=== PATIENT | male | born 1965 | race Caucasian/White ===

== ENCOUNTER 2016-11-02 15:42 | Inpatient (IN) | payer OTHER ==
--- NOTE | ~2016-11-02 | CN ---
Consultation Report [facility] [address] [place]. [address] NAME: CHLOE SEWELL : 67 STATUS : ADM IN PAT#: [id number] AGE: 51 ADM/REG DATE : 11/02/16 MR#: [id number] REPORT SERV DATE: 11/03/16 DICTATED BY: ERA LLAMAS DATE: 11/03/16 REPORT STATUS : Draft TRANSCRIBED BY: MODL DATE: 11/03/16 INFECTIOUS DISEASE CONSULT DATE OF CONSULTATION: 11/03/2016 REASON FOR CONSULTATION: Possible endocarditis. HISTORY OF PRESENT ILLNESS: This is a 51-year-old man, well known to me from his long hospitalization last spring and summer from 12/17/2015 through 02/13/2016 for MRSA bacteremia in the setting of injection drug use with osteomyelitis of his right clavicle and a L3-L4 lumbar epidural abscess. During that admission, he underwent L3-L4 laminectomy by Dr. Colvin and irrigation and debridement of the lumbar spine. On 01/04/2016, he underwent resection of the right sternoclavicular joint with partial resection of the anterior table of the manubrium and a portion of the first rib cartilage and irrigation and debridement of surrounding soft tissue infection by Dr. Paul. The patient completed a long course of vancomycin. His course was also complicated by Lizz tropicalis bacteremia. Unfortunately, the patient has continued to use injection drugs. He says he has had chronic mid and lower back pain since that admission which has not been worsening. The patient also states he had a drainage from a very focal area of his upper sternum, but eventually, found a retained suture there and removed that himself, and over the past two months, he has had no further drainage and he denies any pain in his sternum. The patient presented to the emergency room last night because of two weeks of worsening shortness of breath along with some low-grade fevers and a bit of a cough. He also notes some pain in the right lateral chest area. The patient was found to have a temperature of 100.2 and was mildly tachypneic and tachycardic. The patient underwent negative chest x-ray followed by CT angiography of the chest. I have reviewed this study in detail with Radiology. They did show some probable reactive adenopathy as outlined in the dictation. The patient had patchy infiltrates, most prominent in the right lower lobe, with a few smaller nodular infiltrates in the left upper lobe. There were changes of the manubrium, sternum, right clavicle, and right first rib suggestive of possible chronic osteomyelitis versus just chronic postoperative post infectious changes. Also, seen was splenomegaly. The patient was started on antibiotics of vancomycin and gentamicin after blood cultures. Admission blood cultures remain negative at 24 hours of incubation. PAST MEDICAL HISTORY: As outlined above and in the previous dictation. He does have chronic hepatitis C. He also has history of cholelithiasis, diverticulosis, and BPH. ALLERGIES: CEPHALOSPORIN CAUSES HIVES. HE ALSO CANNOT TAKE MORPHINE. OUTPATIENT MEDICATIONS: Listed as only albuterol. SOCIAL HISTORY: As above. In addition, he is nonsmoker, nondrinker. FAMILY HISTORY: The patient is adopted. Consultation Report [address] [place]. [address] NAME: CHLOE SEWELL : 67 STATUS : ADM IN [facility]#: [id number] AGE: 51 ADM/REG DATE : 11/02/16 MR#: [id number] REPORT SERV DATE: 11/03/16 DICTATED BY: ERA LLAMAS DATE: 11/03/16 REPORT STATUS : Draft TRANSCRIBED BY: LUCHO DATE: 11/03/16 REVIEW OF SYSTEMS: Otherwise negative. PHYSICAL EXAMINATION: VITAL SIGNS: The patient weighs 85 kg, maximum temperature since admission 100.2, blood pressure 165/89, pulse 104, respiratory rate at present is 16. GENERAL: He is alert. He looks ill, but not toxic. HEAD AND NECK: Extraocular movements intact. Conjunctivae without petechiae. The oral cavity is clear. NECK: Supple. LUNGS: Clear to auscultation. CARDIAC: Regular rate and rhythm. Normal S1, S2 without murmur, gallop, or rub. CHEST: Shows chronic postoperative changes of the upper sternal area without signs of inflammation and without tenderness to palpation. BACK: Shows well-healed surgical wound. No focal findings. ABDOMEN: Soft, nontender. EXTREMITIES: Show some needle tracks. No evidence of thrombophlebitis or abscess. SKIN: Without rash. LABORATORY STUDIES: White blood cell count on admission was 9.1, today it is 6.8, hemoglobin is 12.6, platelets 145. Creatinine 0.61. Procalcitonin 0.09. Albumin 3.2. Liver function tests normal. Urinalysis negative. Urine legionella and pneumococcal antigens negative. Rapid influenza screen negative. IMAGING STUDIES: As noted. IMPRESSION: Given the patient's history of ongoing injection drug use along with these bilateral pulmonary infiltrates and fever, we obviously have to be concerned about right- sided endocarditis. I believe the CT changes involving the sternum and manubrium and clavicle may very well all be a chronic from his previous infection and surgery and these do not necessarily represent active osteomyelitis although of course that is of some concern. He did have this history of some drainage for some time, but once, he himself removed an old suture, he has had no further drainage for the past couple of months. The patient also complains of chronic mid and lower back pain. However, this pain has not been worsening. PLAN: 1. Continue vancomycin. 2. Add gram-negative coverage with oral Levaquin pending blood cultures. The patient's IV access is quite tenuous. If needed, we could switch the vancomycin and oral Zyvox. He has a history of ceftriaxone allergy. 3. Await blood culture results. 4. If the blood cultures are positive, we may need a followup MRI of the spine. Consultation Report [address] [place]. [address] NAME: CHLOE SEWELL : 67 STATUS : ADM IN [facility]#: [id number] AGE: 51 ADM/REG DATE : 11/02/16 MR#: [id number] REPORT SERV DATE: 11/03/16 DICTATED BY: ERA LLAMAS DATE: 11/03/16 REPORT STATUS : Draft TRANSCRIBED BY: LUCHO DATE: 11/03/16 YOBANY/LUCHO Era Llamas M.D. / [id number] CC: Jesus Sevilla DO
--- NOTE | ~2016-11-02 | DS ---
Discharge Summary [facility] [address] [place]. [address] NAME: CHLOE SEWELL : 67 STATUS : DIS IN PAT#: [id number] AGE: 51 ADM/REG DATE : 11/02/16 MR#: [id number] REPORT SERV DATE: 11/09/16 DICTATED BY: SJ BARKER DATE: 11/08/16 REPORT STATUS : Draft TRANSCRIBED BY: MODL DATE: 11/08/16 ADMISSION DATE: 11/02/2016 DISCHARGE DATE: 11/08/2016 DISCHARGE DIAGNOSES: 1. Likely a community-acquired pneumonia with sepsis. 2. Acute hypoxic respiratory failure, present on admission, resolved. 3. Hypertension. 4. Ongoing IV drug use. 5. History of infective endocarditis. 6. History of methicillin-resistant Staphylococcus aureus, osteomyelitis, and diskitis. 7. History of fungemia and bacteremia as related to above. 8. Hepatitis C. CONSULTS: Dr. Llamas of Infectious Disease. PROCEDURES AND IMAGING: Echocardiogram performed on 11/04/2016 was negative for endocarditis. The patient had normal LV size and systolic function as well as diastolic function. The patient also had normal right ventricular size and systolic function. The patient only had [id number] tricuspid regurgitation, mild calcified aortic valve, and mild mitral calcification. CT of the chest performed on 11/02/2016 revealed bilateral infiltrates that was suspicious for possible septic emboli. HOSPITAL COURSE: This is a 51-year-old gentleman with ongoing IV drug use along with history of infective endocarditis and diskitis as well as osteomyelitis, prior fungemia, who was admitted to the hospital with bilateral pulmonary infiltrates. For details, please refer to the excellent H and P dictated by Dr. Pugh. In summary, the patient was admitted with a very high suspicion for a recurrent episode of endocarditis with septic emboli, causing his bilateral pulmonary infiltrates and hypoxic respiratory failure. The patient was admitted and was seen by Infectious Disease. The patient was initially started on very broad- spectrum IV antibiotics. The patient was worked up for an infective endocarditis, but his MARIA R was very benign as mentioned above. None of his blood cultures came back positive and the patient actually improved significantly on the antibiotics. The patient had poor IV access and his antibiotics was changed to oral Zyvox and Levaquin half way through his hospital stay. The patient nonetheless continued to improve. After having been monitored for several days, it was decided that the patient is probably okay to be discharged home on few additional days of p.o. Levaquin and to be followed closely as an outpatient. One of the issues that the patient had was uncontrolled pain, which is understandable given his history of IV heroin use. The patient was started on OxyContin 10 mg p.o. b.i.d. for baseline pain control, which he actually did fairly well. The patient actually requested to be started on methadone and his case was discussed with palliative care, who did not feel that the patient would benefit from methadone therapy for baseline pain control, especially given his ongoing IV drug abuse. In any case, the patient is now being discharged home in stable condition to be followed closely as an outpatient. DISCHARGE MEDICATIONS: Discharge Summary [address] [address] NAME: CHLOE SEWELL : 67 STATUS : DIS IN PAT#: [id number] AGE: 51 ADM/REG DATE : 11/02/16 MR#: [id number] REPORT SERV DATE: 11/09/16 DICTATED BY: SJ BARKER DATE: 11/08/16 REPORT STATUS : Draft TRANSCRIBED BY: LUCHO DATE: 11/08/16 1. Levaquin 750 mg p.o. daily x3 additional days. 2. Norvasc 5 mg p.o. b.i.d. as a new medication. 3. OxyContin 10 mg p.o. q.12 hours scheduled as a new medication, the patient was given 20 to cover ten day course in which patient will need to follow up with a primary care physician. 4. Albuterol inhaler four times daily p.r.n. DISPOSITION: Home. FOLLOWUP: Please follow up with PCP in the next one to two weeks. A total of 45 minutes spent in coordinating this patient's discharge, bulk of which was counseling the patient against IV drug use. DUGLAS/LUCHO Sj Barker MD / [id number] CC: Sj Barker MD
--- NOTE | ~2016-11-02 | HP ---
History And Physical [facility] [address] [place]. [address] NAME: CHLOE SEWELL : 67 STATUS : ADM IN [facility]#: [id number] AGE: 51 ADM/REG DATE : 11/02/16 MR#: [id number] REPORT SERV DATE: 11/02/16 DICTATED BY: BIMAL HARRIS DATE: 11/02/16 REPORT STATUS : Draft TRANSCRIBED BY: MODL DATE: 11/02/16 DATE OF ADMISSION: 11/02/2016 CHIEF COMPLAINT: Shortness of breath. HISTORY OF PRESENT ILLNESS: This is a 51-year-old male with a history of intravenous drug abuse with recurrent infective endocarditis, MRSA, osteomyelitis, and soft tissue infection, who presents to the emergency room at [facility] with the above-mentioned problems. History is obtained from the patient and reviewing data available on the [employer] system. According to Mr. Sewell, he has been having shortness of breath for about two weeks now, which has been progressively getting worse. Today, he could not even get off his bed or perform any activities of daily living and decided to come to the emergency room to be evaluated. He states it feels exactly like he felt when he had his endocarditis. In the emergency room, initial workup including a chest x-ray, EKG did not reveal any acute abnormalities. However, when he presented, his blood pressure was 220/122. He was febrile with a fever of 100.2 and heart rate of 102. Hospitalist Service is asked to admit him for further evaluation and treatment. At the time of my evaluation, he looked quite ill and had audible wheezing. He denied any chest pain or palpitations. He did not have any orthopnea. He does have a cough, which was essentially nonproductive, not associated with any hemoptysis, night sweats, or weight loss. He denied fevers or chills at home. Denied any nausea, vomiting, diarrhea, dysuria. He has not had any hematemesis, hematochezia, or hematuria. No other history of recent travel or exposures. He does use heroin and sometimes crack cocaine which he shoots up. He uses heroin at least twice a day. PAST MEDICAL HISTORY: Significant for prior bacteremia and fungemia, history of infective endocarditis, numerous MRSA, osteomyelitis, and soft tissue infections. He also has history of hepatitis, pancreatitis, chronic pain with opiate dependence. He has a history of intravenous drug use as well. SOCIAL HISTORY: He does not smoke, drink, or use recreational drugs. He uses heroin and crack cocaine. He states he does not inhale any drugs of abuse. He is currently disabled. FAMILY HISTORY: Noncontributory. MEDICATIONS AT HOME: Reviewed by me in the chart today and reordered by me. REVIEW OF SYSTEMS: As in history of present illness. All other systems were reviewed in detail and quite unremarkable. PHYSICAL EXAMINATION: History And Physical [address] [address] NAME: CHLOE SEWELL : 67 STATUS : ADM IN PAT#: [id number] AGE: 51 ADM/REG DATE : 11/02/16 MR#: [id number] REPORT SERV DATE: 11/02/16 DICTATED BY: BIMAL HARRIS DATE: 11/02/16 REPORT STATUS : Draft TRANSCRIBED BY: LUCHO DATE: 11/02/16 GENERAL: This is a pleasant 51-year-old, not in any acute distress. HEENT: His head is atraumatic, normocephalic. He is alert, awake, oriented to time, place, and person. Pupils are equal, reacting to light and accommodating. External ocular muscles are intact. Membranes are moist and pink. Sclerae are nonicteric. NECK: Supple with no jugular venous distention, lymphadenopathy, or thyromegaly. LUNGS: Auscultation of his lungs revealed diffuse bilateral expiratory wheezes, otherwise without any crackles. There were no rales. Trachea appeared to be in the midline. HEART: Auscultation of his heart revealed 2-3/6 systolic murmur. Rate and rhythm normal. ABDOMEN: Soft, nontender. Bowel sounds are present. EXTREMITIES: Showed no cyanosis, clubbing, or edema. NEUROLOGIC: Grossly intact. No focal sensory or motor deficits. He was able to move all four extremities. VITAL SIGNS: His temperature today was 100.2, pulse 102, respirations 20 a minute, blood pressure was 220/122 upon arrival, and oxygen saturations were 98% on room air. LABORATORY DATA: Reviewed on the [employer] system showed sodium of 139, potassium 4.6, chloride 102 and CO2 of 29, BUN was 9 with a creatinine of 0.67, blood glucose was 93. His troponin was 0.02 today. His BNP was 94.1 today. Lactate was 0.7 today. CBC showed a white blood cell count of 9100, hemoglobin was 12.3, hematocrit 39.2, and platelet count was down to 126,000. Differential showed 79 segments with 6 bands. Influenza A and B were negative today. Urine tox screen was not performed today. Films of the chest x-ray were reviewed by me on the PACS today and interpreted by me. Per my interpretation, there is no acute pulmonary infiltrates or pleural effusions seen. A 12-lead EKG done in the emergency room was reviewed and interpreted by me. There is normal sinus rhythm with a rate of [address]-T changes. IMPRESSION: 1. Shortness of breath. 2. Uncontrolled hypertension. 3. Intravenous drug abuse. 4. Possible bacteremia and infective endocarditis. 5. Chronic pain with opiate dependence. 6. History of methicillin-resistant Staphylococcus aureus osteomyelitis and prior bacteremia and fungemia. 7. History of hepatitis. PLAN: We will admit Mr. Sewell to the Hospitalist Service with telemetry for close monitoring. After cultures are drawn, we will start him on empiric IV antibiotics. We will start him on vancomycin with gentamicin for synergy and go ahead and consult Infectious Disease to see him in the morning and offer recommendations. We will also set up an echocardiogram in the morning to evaluate for endocarditis. I feel he may benefit from CTA of his chest to rule out any pulmonary embolism as well. We will place him on unfractionated heparin for the time being and start him on hydralazine intravenously on an as-needed basis for control of blood pressures. We will also control pain with Percocet orally and try to avoid Dilaudid intravenously. We have had issues with his pain medication in the past year as well. I have discussed the above plans with the patient. His questions were answered and he is agreeable to the above recommendations. Please see today's orders History And Physical [address] [place]. [address] NAME: CHLOE SEWELL : 67 STATUS : ADM IN [facility]#: [id number] AGE: 51 ADM/REG DATE : 11/02/16 MR#: [id number] REPORT SERV DATE: 11/02/16 DICTATED BY: BIMAL HARRIS DATE: 11/02/16 REPORT STATUS : Draft TRANSCRIBED BY: LUCHO DATE: 11/02/16 for all the details. Hospitalist Service will be following him during his stay here. /LUCHO Bimal Harris M.D. / [id number] CC: Jesus Sevilla DO
[~2016-11-02 15:42] MED LIST: *DENIES; ACET500CAP PO; NATURA2 OPH; OTC NASAL SPRAY NAS; SENTAB PO; ZESTRIL20 MG PO
[2016-11-02 17:09] LABS: MEAN CORPUS HGB CONC 31.4 g/dL (32.0-36.0); MEAN CORPUSCULAR HEMOGLOB 24.6 pg (26.0-34.0); MEAN CORPUSCULAR VOLUME 78.6 fL (80-100); MEAN PLATELET VOLUME 11.1 fL (9.2-13.0); RBC DISTRIBUTION WIDTH 16.3 % (12.0-16.0)
[2016-11-02 17:10] LABS: ER CBC TAT 0 Hrs 16 Mins; HEMATOCRIT 39.2 % (40.0-51.0); HEMOGLOBIN 12.3 g/dL (13.6-17.8); MANUAL DIFF YES %; PLATELET COUNT 126 10/3/uL (150-400); RED CELL COUNT 4.99 10/6/uL (4.7-6.1); WHITE BLOOD CELLS 9.1 10/3/uL (4.5-10.5)
[2016-11-02] MEDS ORDERED: ALBUTEROL0.083 % INH (17:12)
[2016-11-02 17:13] LABS: BUN (BLOOD UREA NITROGEN) 9 MG/DL (6-23); CALCIUM, SERUM 8.7 MG/DL (8.5-10.4); CHLORIDE, SERUM 102 MMOL/L (96-112); CO2 (CARBON DIOXIDE) 29 MMOL/L (24-34); CREATININE 0.67 MG/DL (0.70-1.30); GFR AFRICAN AMERICAN 130 ML/MIN (>=60); GFR NON AFRICAN AMERICAN 112 ML/MIN (>=60); GLUCOSE, SERUM 93 MG/DL (60-99); POTASSIUM, SERUM 4.6 MMOL/L (3.5-5.3); SGOT(AST) 17 U/L (5-40); SGPT(ALT) 21 U/L (5-65); SODIUM, SERUM 139 MMOL/L (135-148); TOTAL BILIRUBIN 0.9 MG/DL (0-1.2); TOTAL PROTEIN 7.2 G/DL (6.0-8.5)
[2016-11-02 17:14] LABS: A/G RATIO 0.8 (0.7-1.9); ALBUMIN 3.2 G/DL (3.5-5.0); ALKALINE PHOSPHATASE 103 U/L (45-117)
[2016-11-02 17:46] LABS: ANISOCYTOSIS 1+ (5-10/OIF) (0-5/OIF); BAND NEUTROPHILS 6 %; EOSINOPHILS 3 %; EOSINOPHILS ABSOLUTE (CALC) 0.27 10/3/uL (0.0-0.53); ER DIFF TAT 0 Hrs 52 Mins; LYMPHOCYTES 5 %; LYMPHOCYTES ABSOLUTE (CALC) 0.46 10/3/uL (0.67-4.30); MONOCYTES 7 %; MONOCYTES ABSOLUTE (CALC) 0.64 10/3/uL (0.21-1.20); NEUTROPHILS ABSOLUTE (CALC) 7.74 10/3/uL (2.02-8.40); PLATELET ESTIMATE SLT DEC (ADEQUATE); SEGMENTED NEUTROPHIL (0) 79 %; TOTAL NUCLEATED CELLS 100
[2016-11-02 17:54] LABS: PROCALCITONIN 0.09 ng/mL (<0.5)
[2016-11-02 18:49] LABS: TROPONIN I <0.02 NG/ML (<0.05)
[2016-11-02 19:15] LABS: LACTATE 0.7 MMOL/L (0.3-2.4)
[2016-11-02 20:31] LABS: INFLUENZA A SCREEN NEGATIVE (NEGATIVE); INFLUENZA B SCREEN NEGATIVE (NEGATIVE)
[2016-11-02 22:16] LABS: ASCORBIC ACID (UR NOT ORDER) NEG (NEG); BILIRUBIN, URINE NEGATIVE (NEG); ER URINALYSIS TAT 0 Hrs 11 Mins; KETONE, URINE NEGATIVE (NEG); LEUKOCYTE ESTERASE(NOT OR NEG (NEG); NITRITE (URINE) NEG (NEG); WBC (NOT ORDERED) (RFLEX) < 1 (0-5)
[2016-11-03 01:07] LABS: AMPHETAMINES (NOT ORD) NEG (NEG); BENZODIAZEPINES (NOT ORD) NEG (NEG); CANNABINOIDS (THC) NEG (NEG); COCAINE (NOT ORDERED) NEG (NEG); PHENCYCLIDINE(PCP) NEG (NEG)
[2016-11-03 01:08] LABS: BARBITURATES (NOT ORDERED NEG (NEG); OPIATES POS (NEG); TRICYCLICS NEG (NEG)
[2016-11-03 01:22] LABS: BE (BASE EXCESS) 2.7 MEQ/L (0 +/- 2.5); CARBOXYHEMOGLOBIN 1.9 % (0-3); HCO3 (ACTUAL BICARBONATE) 25.6 MEQ/L (23-27); HEMOBLOGIN CONTENT 13.2 G/DL (14-18); INSTRUMENT SERIAL # 8087; METHEMOGLOBIN 0.4 % (0-3); O2 CONTENT 17.8 VOL% (18-24); PCO2 (CO2 TENSION) 34 MMHG (35-45); PO2 (O2 TENSION) 89 MMHG (79-93)
[2016-11-03 01:23] LABS: ALLENS TEST Pos; DEVICE Nasal Cannula @ 2.5; OPERATOR ID 17589; SAMPLE Arterial
[2016-11-03 04:46] LABS: BASOPHILS 0.4 %; BASOPHILS ABSOLUTE 0.03 10/3/uL (0.0-0.16); EOSINOPHILS 2.4 %; EOSINOPHILS ABSOLUTE 0.16 10/3/uL (0.0-0.53); HEMATOCRIT 39.7 % (40.0-51.0); HEMOGLOBIN 12.6 g/dL (13.6-17.8); IMMATURE GRANULOCYTES 0.3 %; IMMATURE GRANULOCYTES ABSOLUTE 0.02 10/3/uL (0.0-0.11); LYMPHOCYTES 13.2 %; LYMPHOCYTES ABSOLUTE 0.89 10/3/uL (0.67-4.30); MEAN CORPUS HGB CONC 31.7 g/dL (32.0-36.0); MEAN CORPUSCULAR VOLUME 78.6 fL (80-100); MONOCYTES ABSOLUTE 0.61 10/3/uL (0.21-1.20); NEUTROPHILS 74.7 %; NEUTROPHILS ABSOLUTE 5.04 10/3/uL (2.02-8.40); PLATELET COUNT 145 10/3/uL (150-400); RBC DISTRIBUTION WIDTH 16.3 % (12.0-16.0); RED CELL COUNT 5.05 10/6/uL (4.7-6.1); WHITE BLOOD CELLS 6.8 10/3/uL (4.5-10.5)
[2016-11-03 04:53] LABS: BUN (BLOOD UREA NITROGEN) 8 MG/DL (6-23); CALCIUM, SERUM 9.1 MG/DL (8.5-10.4); CHLORIDE, SERUM 105 MMOL/L (96-112); CO2 (CARBON DIOXIDE) 27 MMOL/L (24-34); CREATININE 0.61 MG/DL (0.70-1.30); GFR AFRICAN AMERICAN 135 ML/MIN (>=60); GFR NON AFRICAN AMERICAN 116 ML/MIN (>=60); GLUCOSE, SERUM 107 MG/DL (60-99); POTASSIUM, SERUM 3.9 MMOL/L (3.5-5.3); SODIUM, SERUM 142 MMOL/L (135-148)
[2016-11-03 04:55] LABS: PHOSPHORUS, SERUM 3.1 MG/DL (2.5-4.5)
[2016-11-03 04:59] LABS: ER CBC TAT 0 Hrs 14 Mins; MANUAL DIFF NO %
[2016-11-04 06:41] LABS: BASOPHILS 0.1 %; BASOPHILS ABSOLUTE 0.01 10/3/uL (0.0-0.16); EOSINOPHILS ABSOLUTE 0.14 10/3/uL (0.0-0.53); HEMATOCRIT 36.2 % (40.0-51.0); HEMOGLOBIN 11.3 g/dL (13.6-17.8); IMMATURE GRANULOCYTES 0.1 %; IMMATURE GRANULOCYTES ABSOLUTE 0.01 10/3/uL (0.0-0.11); LYMPHOCYTES 12.6 %; LYMPHOCYTES ABSOLUTE 0.87 10/3/uL (0.67-4.30); MEAN CORPUS HGB CONC 31.2 g/dL (32.0-36.0); MEAN CORPUSCULAR HEMOGLOB 24.7 pg (26.0-34.0); MEAN PLATELET VOLUME 10.6 fL (9.2-13.0); MONOCYTES 6.6 %; MONOCYTES ABSOLUTE 0.46 10/3/uL (0.21-1.20); NEUTROPHILS 78.6 %; NEUTROPHILS ABSOLUTE 5.43 10/3/uL (2.02-8.40); PLATELET COUNT 158 10/3/uL (150-400); RBC DISTRIBUTION WIDTH 16.6 % (12.0-16.0); RED CELL COUNT 4.58 10/6/uL (4.7-6.1); WHITE BLOOD CELLS 6.9 10/3/uL (4.5-10.5)
[2016-11-04 06:42] LABS: MANUAL DIFF NO %
[2016-11-04 06:52] LABS: BUN (BLOOD UREA NITROGEN) 11 MG/DL (6-23); CALCIUM, SERUM 8.6 MG/DL (8.5-10.4); CHLORIDE, SERUM 110 MMOL/L (96-112); CO2 (CARBON DIOXIDE) 24 MMOL/L (24-34); CREATININE 0.74 MG/DL (0.70-1.30); GFR AFRICAN AMERICAN 125 ML/MIN (>=60); GFR NON AFRICAN AMERICAN 108 ML/MIN (>=60); GLUCOSE, SERUM 118 MG/DL (60-99); POTASSIUM, SERUM 4.1 MMOL/L (3.5-5.3); SODIUM, SERUM 144 MMOL/L (135-148)
[2016-11-05 06:27] LABS: BASOPHILS 0.4 %; BASOPHILS ABSOLUTE 0.02 10/3/uL (0.0-0.16); EOSINOPHILS 5.6 %; EOSINOPHILS ABSOLUTE 0.28 10/3/uL (0.0-0.53); HEMATOCRIT 35.9 % (40.0-51.0); HEMOGLOBIN 11.2 g/dL (13.6-17.8); IMMATURE GRANULOCYTES 0.2 %; IMMATURE GRANULOCYTES ABSOLUTE 0.01 10/3/uL (0.0-0.11); LYMPHOCYTES 19.1 %; LYMPHOCYTES ABSOLUTE 0.96 10/3/uL (0.67-4.30); MANUAL DIFF NO %; MEAN CORPUS HGB CONC 31.2 g/dL (32.0-36.0); MEAN CORPUSCULAR HEMOGLOB 24.9 pg (26.0-34.0); MEAN PLATELET VOLUME 10.7 fL (9.2-13.0); MONOCYTES 8.7 %; MONOCYTES ABSOLUTE 0.44 10/3/uL (0.21-1.20); NEUTROPHILS ABSOLUTE 3.32 10/3/uL (2.02-8.40); PLATELET COUNT 125 10/3/uL (150-400); RBC DISTRIBUTION WIDTH 16.5 % (12.0-16.0); RED CELL COUNT 4.49 10/6/uL (4.7-6.1)
[2016-11-05 06:37] LABS: BUN (BLOOD UREA NITROGEN) 10 MG/DL (6-23); CALCIUM, SERUM 8.8 MG/DL (8.5-10.4); CHLORIDE, SERUM 108 MMOL/L (96-112); CO2 (CARBON DIOXIDE) 24 MMOL/L (24-34); CREATININE 0.77 MG/DL (0.70-1.30); GFR AFRICAN AMERICAN 123 ML/MIN (>=60); GFR NON AFRICAN AMERICAN 106 ML/MIN (>=60); GLUCOSE, SERUM 105 MG/DL (60-99); POTASSIUM, SERUM 3.8 MMOL/L (3.5-5.3); SODIUM, SERUM 141 MMOL/L (135-148)
[2016-11-05 22:18] LABS: HEMATOCRIT 37.4 % (40.0-51.0); HEMOGLOBIN 11.8 g/dL (13.6-17.8)
[2016-11-06 05:29] LABS: BASOPHILS 0.5 %; BASOPHILS ABSOLUTE 0.03 10/3/uL (0.0-0.16); EOSINOPHILS 6.3 %; EOSINOPHILS ABSOLUTE 0.36 10/3/uL (0.0-0.53); HEMOGLOBIN 10.9 g/dL (13.6-17.8); IMMATURE GRANULOCYTES 0.2 %; IMMATURE GRANULOCYTES ABSOLUTE 0.01 10/3/uL (0.0-0.11); LYMPHOCYTES 23.6 %; LYMPHOCYTES ABSOLUTE 1.34 10/3/uL (0.67-4.30); MEAN CORPUS HGB CONC 31.1 g/dL (32.0-36.0); MEAN CORPUSCULAR HEMOGLOB 24.4 pg (26.0-34.0); MEAN CORPUSCULAR VOLUME 78.3 fL (80-100); MEAN PLATELET VOLUME 10.5 fL (9.2-13.0); MONOCYTES 7.4 %; MONOCYTES ABSOLUTE 0.42 10/3/uL (0.21-1.20); NEUTROPHILS ABSOLUTE 3.52 10/3/uL (2.02-8.40); PLATELET COUNT 148 10/3/uL (150-400); RBC DISTRIBUTION WIDTH 16.4 % (12.0-16.0); RED CELL COUNT 4.47 10/6/uL (4.7-6.1); WHITE BLOOD CELLS 5.7 10/3/uL (4.5-10.5)
[2016-11-06 05:32] LABS: BUN (BLOOD UREA NITROGEN) 12 MG/DL (6-23); CALCIUM, SERUM 8.6 MG/DL (8.5-10.4); CHLORIDE, SERUM 107 MMOL/L (96-112); CO2 (CARBON DIOXIDE) 25 MMOL/L (24-34); GFR AFRICAN AMERICAN 121 ML/MIN (>=60); GFR NON AFRICAN AMERICAN 104 ML/MIN (>=60); POTASSIUM, SERUM 3.8 MMOL/L (3.5-5.3); SODIUM, SERUM 141 MMOL/L (135-148)
[2016-11-06 05:35] LABS: GLUCOSE, SERUM 135 MG/DL (60-99)
[2016-11-06 05:41] LABS: MANUAL DIFF NO %
[2016-11-07 06:49] LABS: BASOPHILS 0.4 %; BASOPHILS ABSOLUTE 0.02 10/3/uL (0.0-0.16); EOSINOPHILS 11.4 %; EOSINOPHILS ABSOLUTE 0.64 10/3/uL (0.0-0.53); HEMATOCRIT 35.1 % (40.0-51.0); HEMOGLOBIN 10.9 g/dL (13.6-17.8); IMMATURE GRANULOCYTES 0.2 %; IMMATURE GRANULOCYTES ABSOLUTE 0.01 10/3/uL (0.0-0.11); LYMPHOCYTES 17.7 %; LYMPHOCYTES ABSOLUTE 0.99 10/3/uL (0.67-4.30); MANUAL DIFF NO %; MEAN CORPUS HGB CONC 31.1 g/dL (32.0-36.0); MEAN CORPUSCULAR HEMOGLOB 24.7 pg (26.0-34.0); MEAN CORPUSCULAR VOLUME 79.4 fL (80-100); MEAN PLATELET VOLUME 10.4 fL (9.2-13.0); MONOCYTES 8.9 %; NEUTROPHILS 61.4 %; NEUTROPHILS ABSOLUTE 3.44 10/3/uL (2.02-8.40); PLATELET COUNT 147 10/3/uL (150-400); RBC DISTRIBUTION WIDTH 16.3 % (12.0-16.0); RED CELL COUNT 4.42 10/6/uL (4.7-6.1); WHITE BLOOD CELLS 5.6 10/3/uL (4.5-10.5)
[2016-11-07 07:01] LABS: BUN (BLOOD UREA NITROGEN) 15 MG/DL (6-23); CALCIUM, SERUM 8.6 MG/DL (8.5-10.4); CHLORIDE, SERUM 102 MMOL/L (96-112); CO2 (CARBON DIOXIDE) 25 MMOL/L (24-34); CREATININE 1.01 MG/DL (0.70-1.30); GFR AFRICAN AMERICAN 100 ML/MIN (>=60); GFR NON AFRICAN AMERICAN 86 ML/MIN (>=60); GLUCOSE, SERUM 129 MG/DL (60-99); POTASSIUM, SERUM 4.2 MMOL/L (3.5-5.3); SODIUM, SERUM 137 MMOL/L (135-148)
[2016-11-07 10:51] LABS: HEPATITIS B SURFACE ANTIGEN NON-REACTIVE (NON-REACT)
[2016-11-07 11:17] LABS: HEPATITIS B CORE AB IGM NON-REACTIVE (NON-REAC)
[2016-11-07 11:19] LABS: HEP A ANTIBODY IGM NON-REACTIVE (NON-REACT); HIV COMBO NON-REACTIVE (NON REAC)
[2016-11-07 12:18] LABS: HEPATITIS C ANTIBODY REACTIVE (NON-REACT)
[2016-11-07 13:11] LABS: AMPHETAMINES (NOT ORD) NEG (NEG); BARBITURATES (NOT ORDERED NEG (NEG); BENZODIAZEPINES (NOT ORD) NEG (NEG); CANNABINOIDS (THC) NEG (NEG); COCAINE (NOT ORDERED) NEG (NEG); OPIATES POS (NEG); PHENCYCLIDINE(PCP) NEG (NEG); TRICYCLICS NEG (NEG)
[2016-11-08] MEDS ORDERED: OXYCON10 PO (10:54)
[2016-11-08] MEDS ORDERED: LEVAQUIN750 MG PO (11:14)
[2016-11-08] MEDS ORDERED: NORV10 PO (11:15)
== END 2016-11-08 13:16 | disposition home or self-care (01) | DRG 871 ==
LOC: ER 15:42 → 6NO 20:54 → ER/OF 11-03 01:43 → 6NO 11-03 06:15
PROVIDERS: Emergency Medicine; Hospitalist; Internal Medicine; Internal Medicine Infectious Disease; Internal Medicine Pulmonary Disease
DX: A41.9 Sepsis, unspecified organism (principal); J18.9 Pneumonia, unspecified organism; J96.01 Acute respiratory failure with hypoxia; E87.2 Acidosis; N17.9 Acute kidney failure, unspecified; F11.20 Opioid dependence, uncomplicated; N18.4 Chronic kidney disease, stage 4 (severe); F01.50 Vascular dementia, unspecified severity, without behavioral disturbance, psychotic disturbance, mood disturbance, and anxiety; M86.69 Other chronic osteomyelitis, multiple sites; N39.0 Urinary tract infection, site not specified; N13.6 Pyonephrosis; Z51.5 Encounter for palliative care; D63.8 Anemia in other chronic diseases classified elsewhere; B18.2 Chronic viral hepatitis C; F14.90 Cocaine use, unspecified, uncomplicated; N40.1 Benign prostatic hyperplasia with lower urinary tract symptoms; G25.81 Restless legs syndrome; I25.10 Atherosclerotic heart disease of native coronary artery without angina pectoris; Z91.81 History of falling; Z86.14 Personal history of Methicillin resistant Staphylococcus aureus infection
CPT/HCPCS: 36600; 71020; 71275; 80048; 80053; 80074; 80202; 80305; 81001; 82330; 82803; 82805; 82947; 83605; 83735; 83880; 84100; 84132; 84145; 84295; 84484; 85014; 85018; 85025; 87040; 87070; 87205; 87389; 87449; 87804; 93005; 94640; 96365; 96366; 99285; A9270-GY; C8929; J0360; J1580; J2405; J3370; Q9957; Q9967

== ENCOUNTER 2016-12-02 20:09 | Inpatient (IN) | payer OTHER ==
--- NOTE | ~2016-12-02 | HP ---
History And Physical [place] [address] [facility] [place]. [address] NAME: CHLOE SEWELL : 67 STATUS : ADM IN [facility]#: [id number] AGE: 51 ADM/REG DATE : 12/02/16 MR#: [id number] REPORT SERV DATE: 12/03/16 DICTATED BY: JOSE ALBERTO MCCALL DATE: 12/02/16 REPORT STATUS : Draft TRANSCRIBED BY: MODL DATE: 12/02/16 DATE OF ADMISSION: 12/02/2016 POINT OF ENTRY: [facility] Emergency Department. PRIMARY CARE PHYSICIAN: None at this time. CHIEF COMPLAINT: Shortness of breath, cough, sputum production. HISTORY OF PRESENT ILLNESS: Mr. Sewell is a 51-year-old gentleman with a history of IV drug use and polysubstance abuse, complicated by MRSA bacteremia as well as endocarditis, osteomyelitis, and diskitis, who presents to the emergency department today with a few-week history of persistent shortness of breath, cough, sputum production, as well as wheezing. The patient was admitted to the Hospitalist Service in October of this year, found to have community-acquired pneumonia. At that time, blood cultures, CT of the chest, as well as echocardiogram were all negative for evidence of bacteremia or recurrent endocarditis or pulmonary septic emboli. The patient was improved on antibiotics after a few days and discharged to home. The patient states that since discharge, he has been very short of breath with dyspnea on exertion and limitation of exercise tolerance. He has been essentially staying in bed for the past few weeks with a fan in front of him. He endorses cough with sputum production as well as wheezing. He states that it hurts to cough, but otherwise denies any chest pain. Denies any fevers, night sweats, or chills. The patient states that he continues to use IV heroin for management of his chronic pain. He denies any tobacco use, denies any inhalation use of drugs, but did smoke crack cocaine about 25 years ago. Initial evaluation in the emergency department was notable for a heart rate of 108, he was afebrile, blood pressure initially was 203/116. Labs were notable for a normal white count, procalcitonin was negative, lactic acid was 2.0. Chest x-ray was clear. He was hyperglycemic. CT of the chest is pending at the time of dictation. He was noted to be profoundly wheezy on exam despite DuoNeb and steroids and therefore admitted to the Hospitalist Service for further evaluation and management. COMPREHENSIVE REVIEW OF SYSTEMS: Otherwise negative unless listed in history of present illness. PREVIOUS MEDICAL HISTORY: 1. IV drug use and polysubstance use. 2. History of MRSA bacteremia and endocarditis. 3. History of Lizz fungemia. 4. History of MRSA osteomyelitis and diskitis. 5. Chronic pain. 6. Hypertension. 7. Chronic hepatitis C. History And Physical [address] [address] NAME: CHLOE SEWELL : 67 STATUS : ADM IN [facility]#: [id number] AGE: 51 ADM/REG DATE : 12/02/16 MR#: [id number] REPORT SERV DATE: 12/03/16 DICTATED BY: JOSE ALBERTO MCCALL DATE: 12/02/16 REPORT STATUS : Draft TRANSCRIBED BY: LUCHO DATE: 12/02/16 SURGICAL HISTORY: 1. L3-L4 laminectomy. 2. Right sternoclavicular joint resection and debridement for osteomyelitis. ALLERGIES: MORPHINE AND ROCEPHIN. HOME MEDICATIONS: 1. Albuterol two puff inhalation p.o. p.r.n. 2. Albuterol nebulization q.i.d. 3. Norvasc 10 mg daily. SOCIAL HISTORY: He is a former smoker, quit about 10 years ago, but has extensive secondhand smoke exposure. Currently denies alcohol. Does state that he continues to use IV heroin. Denies any other drug use at this time. Denies any recent inhalation use of drugs. FAMILY MEDICAL HISTORY: He is adopted, family history is unknown. LABS AND IMAGIN. White count 6.0, hemoglobin 13.7, hematocrit 33.5, and platelet count is 152. 2. Sodium is 139, potassium 3.8, chloride 104, carbon dioxide 30, BUN 15, creatinine 1.07, glucose is 203, calcium is 9.3, protein is 8.2, albumin is 3.8, bilirubin is 1.0, ALT is 15, AST 16, alkaline phosphatase is 105. 3. Lactic acid 2.0. 4. Procalcitonin is negative. 5. Chest x-ray per my review shows no acute cardiopulmonary abnormality. 6. EKG per my review shows sinus tachycardia with no evidence of any acute ischemia or infarction. 7. CT of the chest is pending at the time of dictation. PHYSICAL EXAMINATION: VITAL SIGNS: Temperature is 98.1 degrees Fahrenheit, pulse is 108, respirations 24, saturating 96% on room air. Blood pressure is 203/116; on recheck, it is now 165/109. Pulse is 91. GENERAL: The patient is awake, alert, in no acute distress. Resting comfortably in bed. He is a well-developed, well-nourished, male who smells of tobacco smoke. HEENT: Atraumatic and normocephalic. Moist mucous membranes. Pupils are equal, round, reactive to light and accommodation. Extraocular eye movements are intact. No scleral icterus. NECK: No jugular venous distention. No carotid bruits. CARDIAC: Tachycardic rate, regular rhythm. No murmurs or gallops. Normal S1, S2. LUNGS: Not on oxygen, in no respiratory distress, is frequently coughing, has diffuse inspiratory and some expiratory wheezes in all lung pozo with some prolonged expiratory phase. No rhonchi or crackles appreciated. ABDOMEN: Soft, nontender, nondistended. Good bowel sounds. No rebound, guarding, or rigidity. EXTREMITIES: Warm, perfused. No cyanosis, clubbing, or edema. History And Physical [address] [address] NAME: CHLOE SEWELL : 67 STATUS : ADM IN [facility]#: [id number] AGE: 51 ADM/REG DATE : 12/02/16 MR#: [id number] REPORT SERV DATE: 12/03/16 DICTATED BY: JOSE ALBERTO MCCALL DATE: 12/02/16 REPORT STATUS : Draft TRANSCRIBED BY: LUCHO DATE: 12/02/16 SKIN: Warm and dry. PSYCH: Affect appropriate. NEURO: Alert and oriented x3. Cranial nerves 2 through 12 grossly intact. Speech is normal. Gait not assessed. ASSESSMENT: Mr. Sewell is a 51-year-old gentleman, who presents with a few-week history of shortness of breath, wheezing, cough, and sputum production and found to have evidence of acute chronic obstructive pulmonary disease exacerbation. PROBLEM LIST: 1. Acute COPD exacerbation. 2. Tachycardia. 3. Hyperglycemia. 4. Hypertension. 5. History of IV drug use. PLAN: 1. Acute COPD exacerbation. The patient does not have a formal diagnosis of COPD; however, given his smoking history as well as inhalation with crack use history, I suspect he does have COPD and/or reactive airway disease. We will treat with IV steroids, inhaled bronchodilators, as well as antibiotics given reports of sputum production. Chest x-ray is clear of pneumonia. CTA of the chest is pending to rule out pneumonia as well as PE. Echocardiogram was done less than a month ago, which showed preserved ejection fraction; however, we will check a BNP given the patient's reports of significant dyspnea on exertion and exercise limitation. 2. Hyperglycemia. Check hemoglobin A1c. 3. Tachycardia. Again likely secondary to acute COPD exacerbation above. EKG was nonischemic. Checking troponin, BNP, as well as CT of the chest. 4. Hypertension. Continue the patient's home Norvasc, IV hydralazine p.r.n. 5. History of IV drug use. Follow up blood cultures as well as urine drug screen as well as follow up CT of the chest to rule out any type of septic pulmonary emboli. We will hold off on repeat echocardiogram as he just had one done less than a month ago and recent blood cultures also have been unremarkable. 6. DVT prophylaxis. Lovenox subcu. 7. Code status. The patient wishes to be full code. SUE/MODKim Jose Alberto Mccall MD / [id number] CC: Jesus Sevilla DO
--- NOTE | ~2016-12-02 | DS ---
Discharge Summary [facility] [address] [place]. [address] NAME: CHLOE SEWELL : 67 STATUS : DIS IN PAT#: [id number] AGE: 51 ADM/REG DATE : 12/02/16 MR#: [id number] REPORT SERV DATE: 12/06/16 DICTATED BY: BARBARA HARRIS DATE: 12/05/16 REPORT STATUS : Draft TRANSCRIBED BY: LUCHO DATE: 12/05/16 ADMISSION DATE: 12/02/2016 DISCHARGE DATE: 12/05/2016 PRINCIPAL DIAGNOSIS: Acute exacerbation of chronic obstructive pulmonary disease versus bronchospastic bronchitis. SECONDARY DIAGNOSES: Hypertension, opioid abuse with IV drug use, chronic pain disorder with low back pain. HISTORY OF PRESENT ILLNESS: Please see Dr. Askew's dictation on 12/02/2016. HOSPITAL COURSE: The patient admitted with COPD exacerbation. The patient also history of opioid abuse, had a drug screen positive for heroin and cocaine which he denies recent use of. In any event, the patient's COPD got somewhat better, however, drug paraphernalia was found in the patient's room after having been abusive over not getting an opioid dose equivalent to his abuse dose. He was seen by psychiatry, and he declined a rehabilitation. The patient expressed to me that he also has chronic pain disorder with low back pain. He said he wished to be legitimate but wanted a plan of care with that. I recommended a methadone treatment program. We arranged 20 mg b.i.d. of methadone with no further p.r.n. therapy, and referral is made to [facility] in [facility]. DISCHARGE MEDICINES: Include Levaquin for 3 more days, albuterol nebulizers p.r.n., Spiriva and Advair metered-dose inhalers, Librium p.r.n. Continue his home Norvasc therapy 10 mg daily. Greater than 30 minutes were spent in the care of this patient and discharge planning on discharge day. RAMONA/LUCHO Barbara Harris M.D. / [id number] CC: Barbara Harris M.D.
--- NOTE | ~2016-12-02 | CN ---
Consultation Report [facility] [address] [place]. [address] NAME: CHLOE SEWELL : 67 STATUS : ADM IN PAT#: [id number] AGE: 51 ADM/REG DATE : 12/02/16 MR#: [id number] REPORT SERV DATE: 12/04/16 DICTATED BY: JASSI WOOD DATE: 12/04/16 REPORT STATUS : Draft TRANSCRIBED BY: MODKim DATE: 12/04/16 PSYCHIATRIC CONSULTATION DATE OF CONSULTATION: 12/04/2016 I reviewed this patient's current and old medical records. HISTORY OF PRESENT ILLNESS: He was admitted with shortness of breath. I was consulted concerning his history of polysubstance dependence. PAST PSYCHIATRIC HISTORY: He has had a number of admissions to this hospital over the past two years, with the sequelae of intravenous drug use. In the past, he has used cocaine, opiates, and other substances. He reports that more recently, his abuse was restricted to intravenous heroin. In the past, he has suffered from septicemia, endocarditis, osteomyelitis, pneumonia, and now with probable COPD. He reports that he started substance abuse when he was in his mid teens. He said he spent his 22st birthday in a drug rehabilitation facility. Following that, he had other drug rehab episodes. 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 At this time, he is insisting that he was not abusing heroin prior to this admission. He said he was taking heroin to treat intolerable back pain. SOCIAL HISTORY: He has been for 17 years. He has grown children. 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 MENTAL STATUS: His mood was very angry. He was mainly angry about not getting enough opioid medication to manage his back pain. He was particularly angry at his doctor because he said he reduced his current opioid regimen. His affect was appropriate. His thinking was logical. He had no delusions. He had no hallucinations. He was oriented to time, place, and person. He demonstrated good, recent, and remote memory. DIAGNOSIS: Polysubstance dependence. RECOMMENDATIONS: He angrily rejected my recommendation that he should consider returning to a drug rehabilitation facility. He refused to consider his more recent heroin IV use, substance abuse, saying it was a legitimate pain management. I will sign off. MARIA D/LUCHO Jassi Wood M.D. / [id number] Consultation Report [place] [address] [place] [address] NAME: CHLOE SEWELL : 67 STATUS : ADM IN PAT#: [id number] AGE: 51 ADM/REG DATE : 12/02/16 MR#: [id number] REPORT SERV DATE: 12/04/16 DICTATED BY: JASSI WOOD DATE: 12/04/16 REPORT STATUS : Draft TRANSCRIBED BY: MODL DATE: 12/04/16 CC: Jesus Sevilla DO
[~2016-12-02 20:09] MED LIST changes: +ALBUTEROL0.083 % INH; +LEVAQUIN750 MG PO; +NORV10 PO; +OXYCON10 PO
[2016-12-02 20:47] LABS: BASOPHILS 0.5 %; BASOPHILS ABSOLUTE 0.03 10/3/uL (0.0-0.16); EOSINOPHILS 4.2 %; EOSINOPHILS ABSOLUTE 0.25 10/3/uL (0.0-0.53); IMMATURE GRANULOCYTES 0.3 %; IMMATURE GRANULOCYTES ABSOLUTE 0.02 10/3/uL (0.0-0.11); LYMPHOCYTES 16.6 %; LYMPHOCYTES ABSOLUTE 0.99 10/3/uL (0.67-4.30); MEAN CORPUS HGB CONC 31.5 g/dL (32.0-36.0); MEAN CORPUSCULAR HEMOGLOB 24.4 pg (26.0-34.0); MEAN CORPUSCULAR VOLUME 77.5 fL (80-100); MEAN PLATELET VOLUME 10.7 fL (9.2-13.0); MONOCYTES 5.7 %; MONOCYTES ABSOLUTE 0.34 10/3/uL (0.21-1.20); NEUTROPHILS 72.7 %; NEUTROPHILS ABSOLUTE 4.32 10/3/uL (2.02-8.40); PLATELET COUNT 152 10/3/uL (150-400); RBC DISTRIBUTION WIDTH 15.4 % (12.0-16.0)
[2016-12-02 20:48] LABS: HEMATOCRIT 43.5 % (40.0-51.0); HEMOGLOBIN 13.7 g/dL (13.6-17.8); MANUAL DIFF NO %; RED CELL COUNT 5.61 10/6/uL (4.7-6.1)
[2016-12-02 21:04] LABS: A/G RATIO 0.9 (0.7-1.9); ALBUMIN 3.8 G/DL (3.5-5.0); ALKALINE PHOSPHATASE 105 U/L (45-117); BUN (BLOOD UREA NITROGEN) 15 MG/DL (6-23); CALCIUM, SERUM 9.3 MG/DL (8.5-10.4); CHLORIDE, SERUM 104 MMOL/L (96-112); CREATININE 1.07 MG/DL (0.70-1.30); GFR AFRICAN AMERICAN 93 ML/MIN (>=60); GFR NON AFRICAN AMERICAN 81 ML/MIN (>=60); GLOBULIN 4.4 G/DL (2.5-4.1); POTASSIUM, SERUM 3.8 MMOL/L (3.5-5.3); SGOT(AST) 16 U/L (5-40); SGPT(ALT) 15 U/L (5-65); SODIUM, SERUM 139 MMOL/L (135-148); TOTAL PROTEIN 8.2 G/DL (6.0-8.5)
[2016-12-02 21:05] LABS: CO2 (CARBON DIOXIDE) 30 MMOL/L (24-34); GLUCOSE, SERUM 203 MG/DL (60-99)
[2016-12-02 21:39] LABS: PROCALCITONIN <0.05 ng/mL (<0.5)
[2016-12-02] MEDS ORDERED: PROVHFA PO (22:11)
[2016-12-03 01:06] LABS: ASCORBIC ACID (UR NOT ORDER) NEG (NEG); BILIRUBIN, URINE NEGATIVE (NEG); KETONE, URINE NEGATIVE (NEG); LEUKOCYTE ESTERASE(NOT OR NEG (NEG); WBC (NOT ORDERED) (RFLEX) < 1 (0-5)
[2016-12-03 03:46] LABS: AMPHETAMINES (NOT ORD) NEG (NEG); BARBITURATES (NOT ORDERED NEG (NEG); BENZODIAZEPINES (NOT ORD) NEG (NEG); CANNABINOIDS (THC) NEG (NEG); COCAINE (NOT ORDERED) POS (NEG); OPIATES POS (NEG); PHENCYCLIDINE(PCP) NEG (NEG); TRICYCLICS NEG (NEG)
[2016-12-03 05:43] LABS: BASOPHILS 0 %; EOSINOPHILS 0 %; HEMATOCRIT 42.1 % (40.0-51.0); HEMOGLOBIN 13.5 g/dL (13.6-17.8); LYMPHOCYTES ABSOLUTE 0.24 10/3/uL (0.67-4.30); MANUAL DIFF NO %; MEAN CORPUS HGB CONC 32.1 g/dL (32.0-36.0); MEAN CORPUSCULAR HEMOGLOB 24.9 pg (26.0-34.0); MEAN CORPUSCULAR VOLUME 77.5 fL (80-100); MEAN PLATELET VOLUME 10.9 fL (9.2-13.0); MONOCYTES 0.7 %; MONOCYTES ABSOLUTE 0.02 10/3/uL (0.21-1.20); NEUTROPHILS 91.3 %; NEUTROPHILS ABSOLUTE 2.73 10/3/uL (2.02-8.40); PLATELET COUNT 173 10/3/uL (150-400); RBC DISTRIBUTION WIDTH 15.4 % (12.0-16.0); RED CELL COUNT 5.43 10/6/uL (4.7-6.1)
[2016-12-03 05:55] LABS: BUN (BLOOD UREA NITROGEN) 15 MG/DL (6-23); CALCIUM, SERUM 9.2 MG/DL (8.5-10.4); CHLORIDE, SERUM 103 MMOL/L (96-112); CO2 (CARBON DIOXIDE) 26 MMOL/L (24-34); CREATININE 1.21 MG/DL (0.70-1.30); GFR AFRICAN AMERICAN 80 ML/MIN (>=60); GFR NON AFRICAN AMERICAN 69 ML/MIN (>=60); GLUCOSE, SERUM 179 MG/DL (60-99); POTASSIUM, SERUM 3.9 MMOL/L (3.5-5.3); SODIUM, SERUM 139 MMOL/L (135-148)
[2016-12-04 06:20] LABS: BASOPHILS 0 %; EOSINOPHILS 0 %; HEMATOCRIT 37.8 % (40.0-51.0); HEMOGLOBIN 12.1 g/dL (13.6-17.8); IMMATURE GRANULOCYTES 0.3 %; IMMATURE GRANULOCYTES ABSOLUTE 0.02 10/3/uL (0.0-0.11); LYMPHOCYTES 4.9 %; LYMPHOCYTES ABSOLUTE 0.38 10/3/uL (0.67-4.30); MANUAL DIFF NO %; MEAN CORPUSCULAR HEMOGLOB 24.8 pg (26.0-34.0); MEAN CORPUSCULAR VOLUME 77.5 fL (80-100); MEAN PLATELET VOLUME 10.9 fL (9.2-13.0); MONOCYTES 2.7 %; MONOCYTES ABSOLUTE 0.21 10/3/uL (0.21-1.20); NEUTROPHILS 92.1 %; NEUTROPHILS ABSOLUTE 7.18 10/3/uL (2.02-8.40); PLATELET COUNT 158 10/3/uL (150-400); RBC DISTRIBUTION WIDTH 16.1 % (12.0-16.0); RED CELL COUNT 4.88 10/6/uL (4.7-6.1); WHITE BLOOD CELLS 7.8 10/3/uL (4.5-10.5)
[2016-12-04 06:37] LABS: BUN (BLOOD UREA NITROGEN) 14 MG/DL (6-23); CALCIUM, SERUM 9.2 MG/DL (8.5-10.4); CHLORIDE, SERUM 108 MMOL/L (96-112); CO2 (CARBON DIOXIDE) 27 MMOL/L (24-34); CREATININE 0.93 MG/DL (0.70-1.30); GFR AFRICAN AMERICAN 111 ML/MIN (>=60); GFR NON AFRICAN AMERICAN 95 ML/MIN (>=60); GLUCOSE, SERUM 155 MG/DL (60-99); PHOSPHORUS, SERUM 2.9 MG/DL (2.5-4.5); SODIUM, SERUM 142 MMOL/L (135-148)
[2016-12-05 06:33] LABS: CALCIUM, SERUM 9.1 MG/DL (8.5-10.4); CHLORIDE, SERUM 103 MMOL/L (96-112); CO2 (CARBON DIOXIDE) 23 MMOL/L (24-34); CREATININE 1.39 MG/DL (0.70-1.30); GFR AFRICAN AMERICAN 68 ML/MIN (>=60); GFR NON AFRICAN AMERICAN 59 ML/MIN (>=60); PHOSPHORUS, SERUM 3.6 MG/DL (2.5-4.5); SODIUM, SERUM 138 MMOL/L (135-148)
[2016-12-05 06:36] LABS: BUN (BLOOD UREA NITROGEN) 27 MG/DL (6-23); GLUCOSE, SERUM 198 MG/DL (60-99)
[2016-12-05 06:39] LABS: HEMATOCRIT 38.9 % (40.0-51.0); MEAN CORPUS HGB CONC 30.8 g/dL (32.0-36.0); MEAN CORPUSCULAR HEMOGLOB 24.7 pg (26.0-34.0); MEAN PLATELET VOLUME 10.5 fL (9.2-13.0); PLATELET COUNT 157 10/3/uL (150-400); RBC DISTRIBUTION WIDTH 16.1 % (12.0-16.0); RED CELL COUNT 4.86 10/6/uL (4.7-6.1); WHITE BLOOD CELLS 9.4 10/3/uL (4.5-10.5)
[2016-12-05 06:46] LABS: MANUAL DIFF YES %
[2016-12-05 08:04] LABS: BAND NEUTROPHILS 3 %; HYPOCHROMIA 1+ (3-10/OIF) (0-2/OIF); LYMPHOCYTES 9 %; LYMPHOCYTES ABSOLUTE (CALC) 0.85 10/3/uL (0.67-4.30); MONOCYTES 6 %; MONOCYTES ABSOLUTE (CALC) 0.56 10/3/uL (0.21-1.20); NEUTROPHILS ABSOLUTE (CALC) 7.99 10/3/uL (2.02-8.40); PLATELET ESTIMATE ADQ (ADEQUATE); SEGMENTED NEUTROPHIL (0) 82 %; TOTAL NUCLEATED CELLS 100
[2016-12-05] MEDS ORDERED: P10 (12:15)
[2016-12-05] MEDS ORDERED: SPIRIVA INH (12:15)
[2016-12-05] MEDS ORDERED: LEVAQUIN750 MG PO (12:17)
[2016-12-05] MEDS ORDERED: L10 PO (12:18)
[2016-12-05] MEDS ORDERED: CAT1 PO (12:19)
[2016-12-05] MEDS ORDERED: METHATAB10 PO (12:20)
[2016-12-05] MEDS ORDERED: ADVAIR250 INH (12:23)
== END 2016-12-05 14:32 | disposition home or self-care (01) | DRG 191 ==
LOC: ER 20:09 → 1SO 22:52
PROVIDERS: Emergency Medicine; Internal Medicine
DX: J44.1 Chronic obstructive pulmonary disease with (acute) exacerbation (principal); R65.10 Systemic inflammatory response syndrome (SIRS) of non-infectious origin without acute organ dysfunction; N17.9 Acute kidney failure, unspecified; F14.20 Cocaine dependence, uncomplicated; R73.9 Hyperglycemia, unspecified; I16.0 Hypertensive urgency; G89.29 Other chronic pain; D75.89 Other specified diseases of blood and blood-forming organs; M54.9 Dorsalgia, unspecified; F11.10 Opioid abuse, uncomplicated; R00.0 Tachycardia, unspecified; Z79.899 Other long term (current) drug therapy; Z87.891 Personal history of nicotine dependence; Z86.14 Personal history of Methicillin resistant Staphylococcus aureus infection; Z87.01 Personal history of pneumonia (recurrent); Z86.19 Personal history of other infectious and parasitic diseases; Z88.5 Allergy status to narcotic agent; Z88.1 Allergy status to other antibiotic agents
CPT/HCPCS: 71020; 71275; 74176; 80048; 80053; 80305; 81001; 83036; 83605; 83735; 83880; 84100; 84145; 85025; 87040; 87070; 87205; 93005; 94640; 94667; 94668; 96374; 97161-GP; 99285; A9270-GY; J0360; J1956; J2405; J2930; J3370; Q9967